=== PATIENT | male | born 1965 | race Caucasian/White ===

== ENCOUNTER 2016-06-28 10:10 | Emergency (ER) | payer OTHER ==
--- NOTE | 2016-06-28 11:43 | DIAGNOSTIC IMAGING REPORT ---
PROCEDURE: XR CHEST 1 VIEW INDICATION: CHEST PAIN TECHNIQUE: Portable AP view 11:09 a.m. COMPARISON: None. FINDINGS: Lungs are clear. Heart and mediastinum are normal. Thorax is normal. IMPRESSION: 1. Negative chest.
--- NOTE | 2016-06-28 14:46 | ED ORDER SUMMARY ---
..... Patient: JINNY PARR OrderSheet [facility] VisitID: [id number] [address] [place] [address] 51y, M Registration Date/Time: 06/28/2016 ORDER SHEET Weight: 107.9 kg (stated) Allergies: No Known Drug Allergy GENERAL ORDERS: Chest 1V Urgent (10:06/28/2016 PHutchinson DO) (Ack 10:30 Sandy) (11:13 DDean R.N.) Septic Technician (Continuous) (10:06/28/2016 PHutchinson DO) (10:30 DDean R.N.) UA-Culture if indicated Urgent (:06/28/2016 PHutchinson DO) (Ack 10:31 Sandy) (11:13 DDean R.N.) Cardiac Panel Stat (:06/28/2016 PHutchinson DO) (Ack 10:31 Sandy) (10:37 JDeElena R.N.) BNP Urgent (10:06/28/2016 PHutchinson DO) (Ack 10:31 Sandy) (10:37 JDeElena R.N.) D-Dimer Urgent (10:06/28/2016 PHutchinson DO) (Ack 10:31 Joannenandez) (10:37 JDeElena R.N.) Amylase Urgent (10:06/28/2016 PHutchinson DO) (Ack 10:29 Sandy) (10:37 JDeElena R.N.) Lipase Urgent (10:06/28/2016 PHutchinson DO) (Ack 10:30 Joannenandez) (10:37 JDeElena R.N.) TSH Urgent (10:06/28/2016 PHutchinson DO) (Ack 10:30 Joannenandez) (10:37 JDeElena R.N.) Oxygen (2 L/min) (NC) (10:06/28/2016 PHutchinson DO) (10:30 DDean R.N.) Pulse oximeter (10:06/28/2016 PHwichinson DO) (10:30 DDean R.N.) EKG - ER [facility] (10:33 MNgissellenandez) Vitals (10:06/28/2016 [facility] DO) (10:30 DDean R.N.) Call (Place call to): (Dr Hopper) (11:39 [facility]/28/2016 [facility] (Ack 11:48 MNburt) (12:09 MNgissellenandez) - (cardiac stress test at 14:00 please) (12:10 06/28/2016 [facility]) (Ack 12:18 Sandy) (Cancelled: Other15:49 DDean R.N.) Troponin-I (at 13:00.) Urgent (12:06/28/2016 [facility] ) (Ack 12:19 Sandy) (14:14 DDean R.N.) MEDICATION ORDERS: Aspirin PO 325 mg (NOW) (:06/28/2016 [facility]) (10:29 DDean R.N.) IV FLUIDS: IV NS : initial bolus 500 mL (1000 mL/hr), then 250 mL/hr for X2 (NOW) (:06/28/2016 [facility]) (10:30 DDean R.N.) ORDER SHEET NOTES: [Electronically signed by Loco James DO (15:42 06/28/2016)] [Electronically signed by Jennifer Gloria R.N. (15:53 06/28/2016)] [Electronically locked/signed by Jennifer Gloria R.N. (15:53 06/28/2016)]
--- NOTE | 2016-06-28 14:46 | ED CLINICAL REPORT ---
Clinical Report - Physicians/Mid Levels [facility] [address] [place] [address] 06/28/2016 10:14 Patient: JINNY PARR Time Seen: 10:21. Arrived- By private vehicle. Historian- patient. HISTORY OF PRESENT ILLNESS Chief Complaint: CHEST DISCOMFORT. At its maximum, severity described as moderate. When seen in the E.D., severity described as moderate. Modifying factors- worsened by movement. Relieved by rest. This started about 2 days ago and is still present. It was gradual in onset and has been waxing/waning. Onset during light activity. It is described as "pain" and it is described as located in the central chest and left chest area and left shoulder and radiating to the left shoulder. No nausea, vomiting or diaphoresis. He has had difficulty breathing. Similar symptoms previously: None. Recent medical care: Not recently seen/assessed. REVIEW OF SYSTEMS No fever, cough, pedal edema, calf pain or fainting episodes. No headache, sore throat, abdominal pain, black stools or difficulty with urination. No skin rash, enlarged lymph nodes or bloody stools. All systems otherwise negative, except as recorded above. PAST HISTORY See nurses notes. Hypertension. SURGERY HX: Ear tubes as a child Colon Polyp removal Colonoscopy. Medications: None. Allergies: No Known Drug Allergy. SOCIAL HISTORY Never smoker. Occasional alcohol use. No drug use. Is a local resident. ADDITIONAL NOTES The nursing notes have been reviewed. PHYSICAL EXAM Vital Signs: 06/28/2016 10:12 BP: 149/96. HR: 90. RR: 18. O2 saturation: 98%. Temp: 99.1 F. Pain level now: 4/10. Appearance: Alert. Oriented X3. Anxious. Patient in mild distress. Eyes: Eyes normal inspection. No scleral icterus or pale conjunctivae. ENT: Pharynx normal. No pharyngeal erythema or tonsillar exudate. The mucous membranes are not dry. Neck: Normal inspection. Neck supple. CVS: Normal heart rate and rhythm. Heart sounds normal. Pulses normal. Respiratory: No respiratory distress. Breath sounds normal. No accessory muscle use, splinting, decreased air movement, rales or rhonchi. No wheezes or prolonged expiration. (There is some left anterolateral chest wall tenderness which is localized to the area of the patient's subjective complaint; no skin changes; no crepitance). Abdomen: Soft and nontender. No organomegaly. No mass. Back: Normal external inspection. Skin: Skin warm and dry. Normal skin color. No rash. Normal skin turgor. Extremities: Extremities exhibit normal ROM. No lower extremity edema. Neuro: Oriented X 3. No motor deficit. No sensory deficit. LABS, X-RAYS, AND EKG EKG: EKG time: (10:20). Normal sinus rhythm. Rate: 80. Normal P waves. Normal EDMUNDO. Nondiagnostic Q waves in lead III, aVF and V1. Non-specific ST segment / T wave abnormalities. Non-specific T wave flattening in lead III. Non-specific T wave inversion in lead III. The study has been interpreted contemporaneously by me. The EKG appears to be a good tracing. Rhythm Strip #1: Normal sinus rhythm. Regular rhythm. Narrow QRS complexes. No ectopy. Chest X-ray: No acute disease. Views: AP (portable). Technique: good. The X-rays were interpreted contemporaneously by me. Laboratory Tests: UA-Culture if indicated: (MALIKA: 06/28/2016 11:00) ( MsgRcvd 06/28/2016 11:38) Final results Test Result Flag Units (Reference) URINE COLOR YELLOW URINE APPEARANCE CLOUDY URINE GLUCOSE NEGATIVE (NEGATIVE) URINE BILIRUBIN NEGATIVE (NEGATIVE) URINE KETONE NEGATIVE (NEGATIVE) URINE SPECIFIC GRAVITY 1.010 (1.010-1.030) URINE PH 7.0 (5.0-8.0) URINE PROTEIN NEGATIVE (NEGATIVE) URINE UROBILINOGEN 0.2 EU/dL (0.2-1.0) URINE NITRITE NEGATIVE (NEGATIVE) URINE BLOOD NEGATIVE (NEGATIVE) URINE LEUK ESTERASE NEGATIVE (NEGATIVE) URINE RBC NONE SEEN rbc/hpf (0-1) URINE WBC NONE SEEN wbc/hpf (0-1) URINE EPITHELIAL CELLS RARE EPI/hpf (0-5) URINE BACTERIA NONE SEEN (NONE SEEN) URINE COMMENT CULT NOT INDICATED 4+ AMORPHOUSURINE CULTURES ARE SET-UP BASED ON THE FOLLOWING CRITERIA:POSITIVE NITRITEPOSITIVE LEUKOCYTE ESTERASEGREATER THAN 10 WHITE BLOOD CELLSMODERATE (2+) OR GREATER BACTERIA CBC w Diff: (MALIKA: 06/28/2016 10:18) ( [facility] 06/28/2016 10:36) Final results Test Result Flag Units (Reference) WHITE BLOOD COUNT 7.4 K/uL (4.5-11.5) RED BLOOD COUNT 5.55 M/uL (4.50-5.90) HEMOGLOBIN 16.8 gm/dL (13.5-17.5) HEMATOCRIT 49.5 % (41.0-53.0) MEAN CELL VOLUME 89 fL (80-100) MEAN CORPUSCULAR HGB 30 pg (26-34) MEAN CORPUSCULAR HGB CONC 34 g/dL (31-37) RED CELL DISTRIBUTION WIDTH 12.5 % (11.6-14.8) PLATELET COUNT 226 K/uL (150-400) NEUTROPHIL % 59.4 % (50-75) LYMPH % 29.1 % (25-40) MONO % 8.8 % (3-14) EOSINOPHIL % 2.2 % (0-4) BASOPHIL % 0.5 % (0-2) [id number]: (MALIKA: 06/28/2016 10:18) ( [facility] 06/28/2016 10:44) Final results Test Result Flag Units (Reference) D-DIMER QUANTITATIVE 0.30 ug/mLFEU (0.27-0.52) The primary value of this quantitative assay relates toits negative predictive value (i.e. exclusion) of pulmonaryembolism/deep vein thrombosis/DIC.Elevated levels of d-dimer may also occur with:, age, cancer, inflammation, liver disease,post-op, infection, hematoma, coronary disease, peripheralarteriopathy, bleeding disorders and thrombolytic treatment.Results should be correlated with other clinical andradiological data.Testing Methodology: Latex Immunoassay Troponin-I: (MALIKA: 06/28/2016 13:00) ( [facility] 06/28/2016 13:28) Final results Test Result Flag Units (Reference) TROPONIN I 0.08 ng/mL (0.00-1.5) TROPONIN REFERENCE RANGE:<0.1 NEGATIVE0.1-1.5 INDETERMINANT>1.5 POSITIVE BNP: (MALIKA: 06/28/2016 10:18) ( [facility] [place] [place] 06/28/2016 11:03) Final results Test Result Flag Units (Reference) B-TYPE NATRIURETIC PEPTIDE < 5.0 L pg/ml (5-100) CHEM 13 PANEL: (MALIKA: 06/28/2016 10:18) ( [facility] [place] [place] 06/28/2016 11:06) Final results Test Result Flag Units (Reference) GLUCOSE 83 mg/dL (70-110) BUN 15 mg/dL (7-18) CREATININE 1.0 mg/dL (0.6-1.3) Estimated GFR >60 mL/min Estimated GFR- >60 mL/min Note: Persistent reduction over 3 months in eGFR<60 mL/min/1.73 m2 defines CKD. Patients with eGFR values>=60 mL/min/1.73 m2 may also have CKD if evidence ofpersistent proteinuria. Additional information may be foundat [email or web address].org. SODIUM 144 mmol/L (136-145) POTASSIUM 4.2 mmol/L (3.5-5.1) CHLORIDE 107 mmol/L (98-107) CARBON DIOXIDE 30 mmol/L (21-32) CALCIUM 9.1 mg/dL (8.5-10.1) TOTAL PROTEIN 7.7 g/dL (6.4-8.2) ALBUMIN 4.0 g/dL (3.3-5.0) BILIRUBIN, TOTAL 0.4 mg/dL (0.0-1.0) ALKALINE PHOSPHATASE 99 U/L (46-116) AST (SGOT) 34 U/L (15-37) ALT (SGPT) 77 U/L (12-78) CPK 141 U/L (24-260) MAGNESIUM 2.1 mg/dL (1.8-2.4) LIPASE 207 U/L (73-393) AMYLASE 46 U/L (25-115) TROPONIN I <0.05 L ng/mL (0.00-1.5) TROPONIN REFERENCE RANGE:<0.1 NEGATIVE0.1-1.5 INDETERMINANT>1.5 POSITIVE THYROID STIMULATING HORMONE 2.211 uIU/mL (0.34-3.74) . Pulse Oximetry: 06/28/2016 10:12 O2 saturation: 98%. (FIO2 - room air). Interpretation: normal. Note - Tests: (PROCEDURE: CT SINUS/FACIAL BONES W/O CONT - 05/22/2014 12:37 INDICATIONS: Sinusitis. Globus syndrome with dsyphagia. TECHNIQUE: Noncontrast axial images with coronal reformations. COMPARISON: None. FINDINGS: Frontal sinus aplasia. Normal ethmoid sinuses. Minor sphenoid and left maxillary sinus mucoperiosteal thickening. Mild right maxillary sinus mucoperiosteal thickening. No air-fluid levels. Ostiomeatal units are patent bilaterally. Moderate right nasal septal deviation. No osseous abnormalities. IMPRESSION: 1. Frontal sinus aplasia 2. Minor sphenoid and left maxillary sinus mucoperiosteal thickening 3. Mild right maxillary sinus mucoperiosteal thickening 4. Moderate right nasal septal deviation Electronically signed by: ABRAHAM MENDIOLA MD 05/22/2014 12:37). PROGRESS AND PROCEDURES Course of Care: Normal Saline 1 liter IVPB given. ASA 325 mg PO given. 14:38 06/28/16. Patient is stable. Physical exam findings are improved. Symptoms much better. 14:44 06/28/16. Cannot perform stress test today per Dr Hopper. I have offered pt admission, as I cannot completely rule out ACS without stress test, but he declines this with the understanding. Discussed case with hospitalist, (Ruchi call placed 11:38 call returned 14:37 - cannot perform stress test today). Reviewed test results. Agreed upon treatment plan. Patient/family counseled. Disposition: Discharged. Condition: stable and improved. CLINICAL IMPRESSION Atypical chest pain .12 lead EKG performed. Essential hypertension. INSTRUCTIONS Do not work for two days. Drink plenty of fluids. No alcohol until released. Warnings: Further evaluation is necessary in order to conduct further tests. It is very important to follow up with a physician. GENERAL WARNINGS: Return or contact your physician immediately if your condition worsens or changes unexpectedly, if not improving as expected, or if other problems arise. OTC Medications: Take aspirin according to label instructions. Available over the counter. (daily dose = 325 mg) Follow-up: Follow up with your doctor tomorrow. Screening today revealed the patient's blood pressure to be in the hypertensive range. The patient should follow up with a primary care provider for blood pressure management. (Electronically signed by Loco James DO 06/28/2016 15:42)
--- NOTE | 2016-06-28 14:46 | ED ORDER SUMMARY ---
..... Patient: JINNY PARR OrderSheet [facility] VisitID: [id number] [address] [place] [address] 51y, M Registration Date/Time: 06/28/2016 ORDER SHEET Weight: 107.9 kg (stated) Allergies: No Known Drug Allergy GENERAL ORDERS: Chest 1V Urgent (10:06/28/2016 PHutchinson DO) (Ack 10:30 Sandy) (11:13 DDean R.N.) Electronic Console Display Operator (Continuous) (10:06/28/2016 PHutchinson DO) (10:30 DDean R.N.) UA-Culture if indicated Urgent (:06/28/2016 PHutchinson DO) (Ack 10:31 Sandy) (11:13 DDean R.N.) Cardiac Panel Stat (:06/28/2016 PHutchinson DO) (Ack 10:31 Sandy) (10:37 JDeElena R.N.) BNP Urgent (10:06/28/2016 PHutchinson DO) (Ack 10:31 Sandy) (10:37 JDeElena R.N.) D-Dimer Urgent (10:06/28/2016 PHutchinson DO) (Ack 10:31 Joannenandez) (10:37 JDeElena R.N.) Amylase Urgent (10:06/28/2016 PHutchinson DO) (Ack 10:29 Sandy) (10:37 JDeElena R.N.) Lipase Urgent (10:06/28/2016 PHutchinson DO) (Ack 10:30 Joannenandez) (10:37 JDeElena R.N.) TSH Urgent (10:06/28/2016 PHutchinson DO) (Ack 10:30 Joannenandez) (10:37 JDeElena R.N.) Oxygen (2 L/min) (NC) (10:06/28/2016 PHutchinson DO) (10:30 DDean R.N.) Pulse oximeter (10:06/28/2016 PHmnchinson DO) (10:30 DDean R.N.) EKG - ER Stat (10:06/28/2016 [facility] DO) (10:33 IAgissellenandez) Vitals (10:06/28/2016 [facility] DO) (10:30 DDean R.N.) Call (Place call to): (Dr Hopper) (11:39 06/28/2016 [facility] ) (Ack 11:48 IAburt) (12:09 IAgissellenandez) - (cardiac stress test at 14:00 please) (12:10 06/28/2016 [facility]) (Ack 12:18 Sandy) (Cancelled: Other15:49 DDean R.N.) Troponin-I (at 13:00.) Urgent (12:06/28/2016 [facility] ) (Ack 12:19 Sandy) (14:14 DDean R.N.) MEDICATION ORDERS: Aspirin PO 325 mg (NOW) (:06/28/2016 [facility]) (10:29 DDean R.N.) IV FLUIDS: IV NS : initial bolus 500 mL (1000 mL/hr), then 250 mL/hr for X2 (NOW) (:06/28/2016 [facility]) (10:30 DDean R.N.) ORDER SHEET NOTES: [Electronically signed by Loco James DO (15:42 06/28/2016)] [Electronically signed by Jennifer Gloria R.N. (15:53 06/28/2016)] [Electronically locked/signed by Jennifer Gloria R.N. (15:53 06/28/2016)]
--- NOTE | 2016-06-28 14:46 | ED NURSING NOTES ---
Clinical Report - Nurses [facility] [address] [place] [address] 06/28/2016 10:14 Patient: JINNY PARR TRIAGE Triage time 1012. Acuity: LEVEL 3. Chief Complaint: CHEST PAIN and (Pt has had chest pain "off and on" for last 2 days-- pain is left shoulder to midchest area). --10:17 Jennifer Gloria R.N. 10:12 06/28/16. BP: 149/96. HR: 90. RR: 18. O2 saturation: 98%. Temp: 99.1 F. Pain level now: 05/26. --10:17 Jennifer Gloria R.N. Weight: 107.9 kg stated. Height/Length: 68.5 inches Per Patient. BMI: 35.7. --10:14 Jennifer Gloria R.N. Medications None. --10:15 Jennifer Gloria R.N. Allergies No Known Drug Allergy. --10:15 Jennifer Gloria R.N. History Arrived by private vehicle. Historian: patient. Accompanied by spouse. Primary physician (miah). The patient has had difficulty breathing. No sweating episodes, nausea, vomiting or cough. PAST MEDICAL HX: Hypertension. SURGERY HX: ( ear tubes as a child , polyp removal). SOCIAL HX: Never smoker. Occasional alcohol use. No drug use. --10:17 Jennifer Gloria R.N. Interventions ID band on patient. To treatment room. --10:17 Jennifer Gloria R.N. PHYSICAL ASSESSMENT 10:12. Ambulatory to room. Patient gowned. GENERAL / NEURO / PSYCH: Alert. Oriented X 4. Appears anxious. RESPIRATORY: Respirations not labored. Chest wall tenderness. CVS: Pulses within normal limits. Capillary refill less than 2 seconds. GI / : Abdomen soft. EXTREMITIES: No lower extremity edema. SKIN: Skin is warm and dry. --10:20 Jennifer Gloria R.N. NURSING PROGRESS NOTES 10:18 06/28/2016 Site #1 started via IV in the right antecubital space with an 20g angiocath, with aseptic technique and good blood return; one attempt. Blood drawn: rainbow set. Labeled in the presence of the patient and sent to the lab. Saline lock flushed with 10 mL saline (by GIAN Oliver). --10:18 Jennifer Gloria R.N. 10:12. quality assurance monitor final placed on patient. Patient gowned. Head of bed elevated. Reassurance given. Patient identifiers checked. Call light placed in reach. Side rails up. Bed placed in lowest position. Patient ready for evaluation- chart flagged. --10:18 Jennifer Gloria R.N. 10:20. EKG time: (1020). EKG was ordered, performed by a nurse and shown to the ED physician. done by Nicci Heath social service technician. --10:20 Jennifer Gloria R.N. 10:23 06/28/2016 Started bag #1 1000 mL IV Fluids IV NS (Saline); bolus of 500 mL over 30 minute(s) then at 250 mL/hr over 2 hour(s) via site #1 via IV pump. IV patency established. IV site checked: no pain, redness, or swelling. IV flushed thoroughly pre- and post-medication administration. --10:30 Jennifer Gloria R.N. 10:24 06/28/2016 Aspirin PO Tablets 324 mg given. Allergies verified and confirmed 5 rights. --10:29 Jennifer Gloria R.N. 10:35 06/28/16. BP: 142/85. HR: 88. RR: 16. O2 saturation: 99% on nasal cannula at 2 liters/minute. Temp: deferred. Pain level now: 04/25. --10:38 Jennifer Gloria R.N. Portable chest x-ray ordered, performed and shown to the ED physician. --10:45 Jennifer Gloria R.N. 11:10 06/28/2016 IV Fluids IV NS via IV site #1 Rate Changed: bag #1 decreased to 250 mL/hr via IV pump. IV patency established. IV site checked: no pain, redness, or swelling. IV flushed thoroughly. --11:14 Jennifer Gloria R.N. 11:00. Patient ID band checked for patient name and birthdate: patient confirmed urine collected with return of yellow-colored cloudy urine; sample sent to lab for urinalysis and culture. Specimen labeled in the presence of the patient. --11:14 Jennifer Gloria R.N. 11:05 06/28/16. BP: 148/85. HR: 78. RR: 17. O2 saturation: 99%. Temp: deferred. Pain level now: 04/25. Additional comments: pt given po fluids. at bedside. . --11:15 Jennifer Gloria R.N. 11:40 06/28/16. BP: 146/88. HR: 75. RR: 20. O2 saturation: 98% on nasal cannula at 2 liters/minute. Temp: deferred. Pain level now: 03/28. Additional comments: Pt asking when he can go home. . --11:52 Jennifer Gloria R.N. 12:15 06/28/16. BP: 131/70. HR: 76. RR: 18. O2 saturation: 99%. Temp: deferred. Pain level now: 04/25. --12:31 Jennifer Gloria R.N. 12:35 06/28/16. ( Pt notified that we will be doing additional lab work at 1300. resting quietly). --12:35 Jennifer Gloria R.N. 13:05. Patient ID band checked for patient name and birthdate: patient confirmed. Blood samples drawn by lab per protocol ; labeled in presence of the patient and sent to lab. --13:15 Jennifer Gloria R.N. 13:15 06/28/16. BP: 145/83. HR: 73. RR: 21. O2 saturation: 99%. Pain level now 03/28. --13:17 Jennifer Gloria R.N. 13:58 06/28/16. BP: 148/88. HR: 75. RR: 14. O2 saturation: 99%. Temp: deferred. Pain level now: 03/28. Additional comments: IV changed to saline lock. waiting for RT to take pt for stress test. . --14:00 Jennifer Gloria R.N. 14:25 06/28/16. ( RT contacted, they stated they are trying to find Dr. Hopper prior to getting pt for stress test.). --14:25 Jennifer Gloria R.N. 15:01 06/28/2016 Site #1 removed upon discharge. Bandaid applied. --15:01 Jennifer Gloria R.N. 14:45. ( ERMD in talking with pt and for extended period. Pt will go home today, and have stress test on outpt basis Thursday.). --15:03 Jennifer Gloria R.N. 13:30 06/28/2016 IV Fluids IV NS Discontinued: bag #1 infused. Total amount infused: 1000 mL (converted to saline lock). --15:53 Jennifer Gloria R.N. DISPOSITION / DISCHARGE 15:30. Condition at departure: improved and stable. No learning barriers present. Discharge instructions provided and reviewed with the patient and spouse. Reviewed medication(s) (ASA). Reviewed referrals (follow up with your PCP for further work up). Spouse verbalized understanding. Written instructions provided in Kazakh. The patient was discharged home and accompanied by spouse. He left the Emergency Department ambulatory and via private vehicle. Spouse driving. --15:34 Jennifer Gloria R.N. 15:03 06/28/16. BP: 131/77. HR: 74. RR: 16. O2 saturation: 99%. Temp: deferred. Pain level now: 03/28. --15:34 Jennifer Gloria R.N. Departure time: 1508. --15:35 Jennifer Gloria R.N. Locked/Released at 06/28/2016 15:53 by Jennifer Gloria R.N.
--- NOTE | 2016-06-28 15:54 | ED DISCHARGE INSTRUCTIONS ---
Patient: JINNY PARR General Instructions [facility] VisitID: [id number] [address] [place] [address] 51y, M Registration Date/Time: 06/28/2016 Atypical chest pain .12 lead EKG performed. Essential hypertension. INSTRUCTIONS Do not work for two days. Drink plenty of fluids. No alcohol until released. Warnings: Further evaluation is necessary in order to conduct further tests. It is very important to follow up with a physician. GENERAL WARNINGS: Return or contact your physician immediately if your condition worsens or changes unexpectedly, if not improving as expected, or if other problems arise. OTC Medications: Take aspirin according to label instructions. Available over the counter. (daily dose = 325 mg) Follow-up: Follow up with your doctor tomorrow. Screening today revealed the patient's blood pressure to be in the hypertensive range. The patient should follow up with a primary care provider for blood pressure management. ADDITIONAL INFORMATION Chest Pain, Uncertain Cause Chest pain can happen for a number of reasons. Sometimes the cause can not be determined. If yourcondition does not seem serious, and your pain does not appear to be coming from your heart, your doctor may recommend watching it closely. Sometimes the signs of a serious problem take more time to appear. Therefore, watch for the warning signs listed below. Home care After your visit, follow these recommendations: Rest today and avoid strenuous activity. Take any prescribed medicine as directed. Follow-up care Follow up with your doctor or this facility as instructed or if you do not start to feel better within 24 hours. Call 911 Get immediate medical attention if any of the following occur: A change in the type of pain: if it feels different, becomes more severe, lasts longer, or begins to spread into your shoulder, arm, neck, jaw or back Shortness of breath or increased pain with breathing Weakness, dizziness, or fainting Rapid heart beat Get prompt medical attention Call your doctor right away if any of the following occur: Cough with dark colored sputum (phlegm) or blood Fever of 100.4F(38C) or higher, or as directed by your health care provider Swelling, pain or redness in one leg High Blood Pressure -- To Be Confirmed [No Tx] Your blood pressure was higher today than normal. Sometimes anxiety or pain can cause a temporary rise in blood pressure that later returns to normal. If your blood pressure is high on one measurement, this does not mean that you have hypertension (a chronic illness). However, you must have your blood pressure measured again within the next few days to find out if its still high. A normal blood pressure is 120/80 or less. The first (top) number is the "systolic" pressure. The second (bottom) number is the "diastolic" pressure. Hypertension exists when either the top number is 140 or higher, OR the bottom number is 90 or higher on repeated measurements. Blood pressure in the range of 120-140 (systolic) or 80-89 (diastolic) is considered "pre-hypertension". This means your are at risk for getting hypertension. You should have regular blood pressure checks to be sure your blood pressure is not rising. Home Care: Measure your blood pressure on 3 different days and write down the results. This can be done at your doctor's office or this facility. Some pharmacies and grocery stores offer automated blood pressure machines for your use. Follow Up: If your blood pressure is "high" (over 120/80) on 2 out of 3 days, you will need to follow up with your doctor for further evaluation and treatment. DO NOT PUT THIS OFF! Untreated high blood pressure increases the risk for heart attack, also known as acute myocardial infarction, or AMI, and stroke. It is a treatable condition. Get Prompt Medical Attention if any of the following occur: Chest pain or shortness of breath Severe headache Throbbing or rushing sound in the ears Nosebleed Sudden severe abdominal pain Extreme drowsiness, confusion or fainting Dizziness or vertigo (dizziness with spinning sensation) Weakness of an arm or leg or one side of the face Difficulty with speech or vision You have been given the following additional information: Chest Pain, Uncertain Cause Hypertension, To Be Confirmed Do not work for two days. (Electronically signed by Loco James DO 06/28/2016 15:42)
--- NOTE | 2016-06-28 15:54 | ED MED RECONCILIATION SUMMARY ---
Patient: JINNY PARR Medication Reconciliation Report [facility] VisitID: [id number] [address] [place] [address] 51y, M Registration Date/Time: 06/28/2016 Weight: 107.9 kg Height/Length: (not available) BMI: 35.7 ALLERGIES: No Known Drug Allergy The patient's Home Medications are listed below: NONE. The source(s) of the original Home Medication information: Not obtained. The following Medications were given to the patient in the Emergency Department: Aspirin [PO] PO 324 mg, administered: 06/28/2016 10:24:00 AM IV NS IV Fluids bolus 500 mL over 30 minute(s), then 250 mL/hr, administered: 06/28/2016 10:23:00 AM The following Medications were prescribed to the patient: Take aspirin according to label instructions. Available over the counter.(daily dose = 325 mg) -- Loco James, DO
--- NOTE | 2016-06-28 15:54 | ED MAR SUMMARY ---
..... Medication Administration Record [facility] [address] [place] [address] Patient: JINNY PARR Visit ID: [id number] 51y, M Weight: 107.9 kg Height/Length: 68.5 in BMI: 35.7 ALLERGIES: No Known Drug Allergy Start 10:23 06/28/2016 Jennifer Gloria R.N., Stop 13:30 06/28/2016 Jennifer Gloria R.N. Medication Administered: IV NS (SALINE), Dose: IV Fluids over 2 hour(s), Rate: 250 mL/hr, Bolus: 500 mL over 30 minute(s), Dispensed: 1000 mL bag, Site: #1 right AC. Medication Ordered: IV NS : initial bolus 500 mL (1000 mL/hr), then 250 mL/hr for X2 (NOW). Given 10:24 06/28/2016 Jennifer Gloria R.N. Medication Administered: ASPIRIN [PO], Dose: 324 mg Tablets PO. Medication Ordered: Aspirin PO 325 mg (NOW).
--- NOTE | 2016-06-28 15:54 | ED MAR SUMMARY ---
..... Medication Administration Record [facility] [address] [place] [address] Patient: JINNY PARR Visit ID: [id number] 51y, M Weight: 107.9 kg Height/Length: 68.5 in BMI: 35.7 ALLERGIES: No Known Drug Allergy Start 10:23 06/28/2016 Jennifer Gloria R.N., Stop 13:30 06/28/2016 Jennifer Gloria R.N. Medication Administered: IV NS (SALINE), Dose: IV Fluids over 2 hour(s), Rate: 250 mL/hr, Bolus: 500 mL over 30 minute(s), Dispensed: 1000 mL bag, Site: #1 right AC. Medication Ordered: IV NS : initial bolus 500 mL (1000 mL/hr), then 250 mL/hr for X2 (NOW). Given 10:24 06/28/2016 Jennifer Gloria R.N. Medication Administered: ASPIRIN [PO], Dose: 324 mg Tablets PO. Medication Ordered: Aspirin PO 325 mg (NOW).
--- NOTE | 2016-06-28 15:54 | ED MED RECONCILIATION SUMMARY ---
Patient: JINNY PARR Medication Reconciliation Report [facility] VisitID: [id number] [address] [place] [address] 51y, M Registration Date/Time: 06/28/2016 Weight: 107.9 kg Height/Length: (not available) BMI: 35.7 ALLERGIES: No Known Drug Allergy The patient's Home Medications are listed below: NONE. The source(s) of the original Home Medication information: Not obtained. The following Medications were given to the patient in the Emergency Department: Aspirin [PO] PO 324 mg, administered: 06/28/2016 10:24:00 AM IV NS IV Fluids bolus 500 mL over 30 minute(s), then 250 mL/hr, administered: 06/28/2016 10:23:00 AM The following Medications were prescribed to the patient: Take aspirin according to label instructions. Available over the counter.(daily dose = 325 mg) -- Loco James, DO
== END 2016-06-28 15:08 | disposition home or self-care (01) ==
LOC: ED SRH 10:10
DX: R07.89 Other chest pain (principal); I10 Essential (primary) hypertension
CPT/HCPCS: 90004; 90074; 90100; 90616; 91320; 91556; 92235; 92530; 92610; 92720; 93140; 95059